=== PATIENT | male | born 1935 | race Caucasian/White ===

== ENCOUNTER 2020-08-05 10:20 | Inpatient (IN) ==
[2020-08-05] MEDS ORDERED: Sennosides 8.6 MG TABLET PO PRN (13:34)
[2020-08-05] MEDS: Haloperidol Oral Conc 10 MG/5 ML UDC PO PRN (21:50)
[2020-08-06] MEDS: Haloperidol Oral Conc 10 MG/5 ML UDC PO PRN (04:54)
[2020-08-06] MEDS: Finasteride 5 MG TABLET PO SCH (07:52)
[2020-08-06] MEDS ORDERED: *HR* Belladonna Alkaloids/Opium 30 MG RECTAL SUPPOSITORY RC PRN (10:37)
[2020-08-06 13:20] LABS: Bilirubin,Urine Negative (Negative); Blood,Urine Large (Negative); Clarity,Urine Clear (Clear); Color,Urine Yellow (Yellow); Glucose,Urine (UA) Normal (Normal); Ketones,Urine 20 mg/dL (Negative); Leukocyte Esterase,Urine Trace (Negative); Mucus,Urine Few per lpf (None-Few); Nitrite,Urine Negative (Negative); PH,Urine 6.5 pH Units (5.0-8.0); Protein,Urine 30 mg/dL (Neg-Trace); RBC,Urine TNTC per hpf (0-3); Specific Gravity,Urine 1.017 (1.010-1.025); Urobilinogen,Urine Normal (Normal)
[2020-08-07 06:46] VITALS: BP 193/69
[2020-08-07] MEDS: Finasteride 5 MG TABLET PO SCH (07:32)
[2020-08-07] MEDS ORDERED: Hyoscyamine SL 0.125 MG TAB.SUBL SL PRN (08:55)
[2020-08-07] MEDS ORDERED: Aspirin 325 MG TABLET PO SCH (09:00)
== END 2020-08-07 10:21 | disposition other institution (70) | DRG 951 ==
LOC: 2ANU 12:35
PROVIDERS: ADMIT Internal Medicine Hospice and Palliative Medicine; ATTEND Internal Medicine Hospice and Palliative Medicine

== ENCOUNTER 2020-08-07 09:32 | Inpatient (IN) ==
[2020-08-07] MEDS ORDERED: Naloxone 0.4 MG/ML INJ IVP PRN (12:05)
[2020-08-07] MEDS ORDERED: Isovue-370 500 ML BOTTLE IVP ONE ×2 (12:27→13:11)
[2020-08-07] MEDS ORDERED: Haloperidol Oral Conc 10 MG/5 ML UDC PO PRN (14:27)
[2020-08-07 16:12] LABS: Basophils % 0.7 %; Eosinophils # 0.1 K/mcL (0.0-0.6); Eosinophils % 1.7 %; Hematocrit 42.7 % (37.5-50.1); Hemoglobin 14.3 g/dL (12.9-16.9); Immature Granulocytes % 0.2 % (0-4); Immature Platelets 5.2 % (1.1-6.1); Lymphocytes # 0.9 K/mcL (0.6-4.6); Lymphocytes % 19.3 %; Mean Corpuscular HGB Conc 33.5 g/dL (31.6-35.5); Mean Corpuscular Hemoglobin 31.3 pg (28.0-33.3); Mean Corpuscular Volume 93.4 fL (83.0-100.0); Mean Platelet Volume 10.4 fL (9.4-12.4); Monocytes # 0.4 K/mcL (0.0-1.3); Monocytes % 9.5 %; Neutrophils # 3.2 K/mcL (1.6-8.9); Platelet Count 133 K/mcL (140-400); Red Blood Count 4.57 M/mcL (4.19-5.50); Red Cell Distribution Width 12.5 % (11.5-14.5); Segmented Neutrophils % 68.6 %; White Blood Count 4.6 K/mcL (4.3-11.1)
[2020-08-07 16:33] LABS: Alanine Aminotransferase 11 Units/L (7-52); Albumin 4.1 g/dL (3.5-5.7); Albumin/Globulin Ratio 1.3 (1.1-2.2); Alkaline Phosphatase 77 Units/L (34-104); Aspartate Amino Transferase 24 Units/L (13-39); BUN/Creatinine Ratio 19 (6-26); Bilirubin,Total 1.2 mg/dL (0.3-1.0); Blood Urea Nitrogen 18 mg/dL (8-23); Carbon Dioxide 27 mEq/L (23-29); Chloride 104 mEq/L (98-107); Globulin 3.1 g/dL (2.4-3.5); Glucose 129 mg/dL (70-105); Osmolality,Calculated 290 (280-300); Potassium 4.4 mEq/L (3.5-5.1); Sodium 138 mEq/L (136-145); Total Protein 7.2 g/dL (6.4-8.9); eGFR For African Americans > 60 (> 60); eGFR For Non-African Americans > 60 (> 60)
[2020-08-07] MEDS ORDERED: Gadolinium Contrast Agent (WT Based) IV PRN (18:23)
[2020-08-07] MEDS ORDERED: 0.9 % Sodium Chloride 1,000 ML IVC SCH (18:30)
[2020-08-07] MEDS: Sennosides 8.6 MG TABLET PO SCH (19:25)
[2020-08-07] MEDS: *HR* Heparin 5,000 UNIT/ML VIAL SQ SCH (22:01)
[2020-08-08] MEDS ORDERED: *HR* LORazepam 2 MG/ML VIAL IVP ONE ×2 (01:48→09:41)
[2020-08-08] MEDS ORDERED: *HR* LORazepam 2 MG/ML VIAL IM ONE (02:24)
[2020-08-08] MEDS ORDERED: Haloperidol Lactate 5 MG/ML VIAL IVP ONE (04:18)
[2020-08-08] MEDS: *HR* Heparin 5,000 UNIT/ML VIAL SQ SCH ×3 (06:18→19:46)
[2020-08-08] MEDS: Sennosides 8.6 MG TABLET PO SCH ×3 (07:33→19:47)
[2020-08-08] MEDS: Finasteride 5 MG TABLET PO SCH ×2 (07:33→07:52)
[2020-08-08] MEDS: Aspirin 325 MG TABLET PO SCH ×2 (07:33→07:52)
[2020-08-08] MEDS ORDERED: OLANZapine 10 MG VIAL IM ONE (12:17)
[2020-08-09] MEDS ORDERED: *HR* LORazepam 2 MG/ML VIAL IVP ONE (01:02)
[2020-08-09] MEDS: *HR* Heparin 5,000 UNIT/ML VIAL SQ SCH ×3 (05:17→21:15)
[2020-08-09 06:53] LABS: Basophils % 0.8 %; Immature Granulocytes % 0.2 % (0-4)
[2020-08-09 06:54] LABS: Eosinophils # 0.2 K/mcL (0.0-0.6); Eosinophils % 3.6 %; Hematocrit 44.5 % (37.5-50.1); Hemoglobin 14.6 g/dL (12.9-16.9); Immature Platelets 3.8 % (1.1-6.1); Lymphocytes # 0.9 K/mcL (0.6-4.6); Mean Corpuscular HGB Conc 32.8 g/dL (31.6-35.5); Mean Corpuscular Hemoglobin 32.4 pg (28.0-33.3); Mean Corpuscular Volume 98.7 fL (83.0-100.0); Mean Platelet Volume 10.4 fL (9.4-12.4); Monocytes # 0.5 K/mcL (0.0-1.3); Neutrophils # 3.5 K/mcL (1.6-8.9); Platelet Count 137 K/mcL (140-400); Red Blood Count 4.51 M/mcL (4.19-5.50); Red Cell Distribution Width 12.6 % (11.5-14.5); Segmented Neutrophils % 69.4 %
[2020-08-09 07:15] LABS: BUN/Creatinine Ratio 24 (6-26); Blood Urea Nitrogen 22 mg/dL (8-23); Calcium 9.3 mg/dL (8.6-10.3); Carbon Dioxide 24 mEq/L (23-29); Chloride 107 mEq/L (98-107); Glucose 97 mg/dL (70-105); Magnesium 2.1 mg/dL (1.6-2.6); Osmolality,Calculated 293 (280-300); Phosphorous 2.9 mg/dL (2.7-4.5); Potassium 3.7 mEq/L (3.5-5.1); Sodium 140 mEq/L (136-145); eGFR For African Americans > 60 (> 60); eGFR For Non-African Americans > 60 (> 60)
[2020-08-09] MEDS ORDERED: *HR* OxyCODONE Immed Rel 5 MG TABLET PO PRN (10:53)
[2020-08-09] MEDS: Aspirin 325 MG TABLET PO SCH ×2 (11:27→16:25)
[2020-08-09] MEDS: Sennosides 8.6 MG TABLET PO SCH ×3 (11:28→20:11)
[2020-08-09] MEDS: Finasteride 5 MG TABLET PO SCH ×2 (11:28→16:24)
[2020-08-09] MEDS ORDERED: OLANZapine 5 MG TAB.RAPDIS PO SCH (18:00)
[2020-08-09] MEDS: OLANZapine 5 MG TAB.RAPDIS PO SCH (20:10)
[2020-08-10] MEDS ORDERED: *HR* LORazepam 2 MG/ML VIAL IVP ONE ×2 (01:33→23:26)
[2020-08-10] MEDS: *HR* Heparin 5,000 UNIT/ML VIAL SQ SCH ×3 (05:11→21:54)
[2020-08-10] MEDS: Sennosides 8.6 MG TABLET PO SCH ×2 (11:00→21:54)
[2020-08-10] MEDS: Finasteride 5 MG TABLET PO SCH (11:00)
[2020-08-10] MEDS: Aspirin 325 MG TABLET PO SCH (11:01)
[2020-08-10] MEDS: OLANZapine 5 MG TAB.RAPDIS PO SCH (21:48)
[2020-08-11] MEDS: *HR* Heparin 5,000 UNIT/ML VIAL SQ SCH ×3 (05:30→21:43)
[2020-08-11] MEDS: Aspirin 325 MG TABLET PO SCH (09:37)
[2020-08-11] MEDS: Finasteride 5 MG TABLET PO SCH (09:38)
[2020-08-11] MEDS: Sennosides 8.6 MG TABLET PO SCH ×2 (09:38→21:46)
[2020-08-11 10:58] LABS: Basophils % 0.9 %; Eosinophils # 0.3 K/mcL (0.0-0.6); Eosinophils % 6.1 %; Hematocrit 42.1 % (37.5-50.1); Hemoglobin 13.7 g/dL (12.9-16.9); Immature Granulocytes % 0.2 % (0-4); Immature Platelets 4.6 % (1.1-6.1); Lymphocytes % 24.3 %; Mean Corpuscular HGB Conc 32.5 g/dL (31.6-35.5); Mean Corpuscular Hemoglobin 30.9 pg (28.0-33.3); Mean Corpuscular Volume 94.8 fL (83.0-100.0); Mean Platelet Volume 10.4 fL (9.4-12.4); Monocytes # 0.3 K/mcL (0.0-1.3); Neutrophils # 2.6 K/mcL (1.6-8.9); Platelet Count 133 K/mcL (140-400); Red Blood Count 4.44 M/mcL (4.19-5.50); Red Cell Distribution Width 12.8 % (11.5-14.5); Segmented Neutrophils % 60.5 %; White Blood Count 4.2 K/mcL (4.3-11.1)
[2020-08-11 11:10] LABS: BUN/Creatinine Ratio 37 (6-26); Blood Urea Nitrogen 33 mg/dL (8-23); Calcium 9.3 mg/dL (8.6-10.3); Carbon Dioxide 25 mEq/L (23-29); Chloride 111 mEq/L (98-107); Glucose 111 mg/dL (70-105); Osmolality,Calculated 304 (280-300); Potassium 3.8 mEq/L (3.5-5.1); Sodium 143 mEq/L (136-145); eGFR For African Americans > 60 (> 60); eGFR For Non-African Americans > 60 (> 60)
[2020-08-11] MEDS ORDERED: D5% in 0.9% NACL 1,000 ML IVC SCH (14:00)
[2020-08-11] MEDS: OLANZapine 5 MG TAB.RAPDIS PO SCH (21:44)
[2020-08-12] MEDS: *HR* Heparin 5,000 UNIT/ML VIAL SQ SCH ×3 (05:47→21:09)
[2020-08-12 06:07] LABS: Amorphous Sediment,Urine Few per hpf (None-Few); Bacteria,Urine Few per hpf (None-Few); Bilirubin,Urine Negative (Negative); Blood,Urine Moderate (Negative); Clarity,Urine Turbid (Clear); Color,Urine Yellow (Yellow); Glucose,Urine (UA) Normal (Normal); Ketones,Urine Trace mg/dL (Negative); Leukocyte Esterase,Urine Small (Negative); Mucus,Urine Few per lpf (None-Few); Nitrite,Urine Negative (Negative); Protein,Urine 30 mg/dL (Neg-Trace); RBC,Urine 30-50 per hpf (0-3); Specific Gravity,Urine 1.028 (1.010-1.025); Urobilinogen,Urine Normal (Normal)
[2020-08-12 06:08] LABS: Amphetamine Screen,Urine Negative ng/mL (Cutoff=1000); Barbiturate Screen,Urine Negative ng/mL (Cutoff=200)
[2020-08-12 06:09] LABS: Benzodiazepines Screen,Urine Positive ng/mL (Cutoff=300); Cannabinoid Screen,Urine Negative ng/mL (Cutoff = 50); Cocaine Screen,Urine Negative ng/mL (Cutoff= 300); Opiate Screen,Urine Negative ng/mL (Cutoff=300); Phencyclidine Screen,Urine Negative ng/mL (Cutoff=25)
[2020-08-12] MEDS: Finasteride 5 MG TABLET PO SCH (09:34)
[2020-08-12] MEDS: Sennosides 8.6 MG TABLET PO SCH ×2 (09:34→21:08)
[2020-08-12] MEDS: Aspirin 325 MG TABLET PO SCH (09:34)
[2020-08-12 13:08] LABS: Adenovirus Not Detected (Not Detect); Bordetella Pertussis Not Detected (Not Detect); Chlamydophila pneumoniae Not Detected (Not Detect); Coronavirus 229E Not Detected (Not Detect); Coronavirus HKU1 Not Detected (Not Detect); Coronavirus NL63 Not Detected (Not Detect); Coronavirus OC43 Not Detected (Not Detect); Human Metapneumovirus Not Detected (Not Detect); Human Rhinovirus/Enterovirus Not Detected (Not Detect); Influenza A Subtype 2009 H1 Not Detected (Not Detect); Influenza B Not Detected (Not Detect); Mycoplasma pneumoniae Not Detected (Not Detect); Parainfluenza Virus 1 Not Detected (Not Detect); Parainfluenza Virus 2 Not Detected (Not Detect); Parainfluenza Virus 3 Not Detected (Not Detect); Parainfluenza Virus 4 Not Detected (Not Detect); Respiratory Syncytial Virus Not Detected (Not Detect); SARS-CoV-2 Not Detected (Not Detect)
[2020-08-12] MEDS: OLANZapine 5 MG TAB.RAPDIS PO SCH (21:08)
[2020-08-13] MEDS: *HR* Heparin 5,000 UNIT/ML VIAL SQ SCH ×3 (05:33→20:49)
[2020-08-13] MEDS: Aspirin 325 MG TABLET PO SCH (07:22)
[2020-08-13] MEDS: Finasteride 5 MG TABLET PO SCH (07:22)
[2020-08-13] MEDS: Sennosides 8.6 MG TABLET PO SCH ×2 (07:22→20:49)
[2020-08-13] MEDS: OLANZapine 5 MG TAB.RAPDIS PO SCH (20:49)
[2020-08-14] MEDS: *HR* Heparin 5,000 UNIT/ML VIAL SQ SCH ×3 (05:09→21:56)
[2020-08-14] MEDS: Aspirin 325 MG TABLET PO SCH (07:39)
[2020-08-14] MEDS: Sennosides 8.6 MG TABLET PO SCH ×2 (07:39→21:56)
[2020-08-14] MEDS: Finasteride 5 MG TABLET PO SCH (07:40)
[2020-08-14] MEDS: OLANZapine 5 MG TAB.RAPDIS PO SCH (21:56)
[2020-08-15] MEDS: *HR* Heparin 5,000 UNIT/ML VIAL SQ SCH ×3 (05:51→20:09)
[2020-08-15] MEDS: Sennosides 8.6 MG TABLET PO SCH ×2 (10:15→20:09)
[2020-08-15] MEDS: Aspirin 325 MG TABLET PO SCH (10:15)
[2020-08-15] MEDS: Finasteride 5 MG TABLET PO SCH (10:17)
[2020-08-15] MEDS ORDERED: Haloperidol Lactate 5 MG/ML VIAL IVP ONE (22:15)
[2020-08-15] MEDS: OLANZapine 5 MG TAB.RAPDIS PO SCH (22:18)
[2020-08-16] MEDS: *HR* Heparin 5,000 UNIT/ML VIAL SQ SCH ×3 (06:13→21:01)
[2020-08-16] MEDS: Aspirin 325 MG TABLET PO SCH (10:05)
[2020-08-16] MEDS: Finasteride 5 MG TABLET PO SCH (10:05)
[2020-08-16] MEDS: Sennosides 8.6 MG TABLET PO SCH ×2 (10:05→19:51)
[2020-08-16] MEDS: OLANZapine 5 MG TAB.RAPDIS PO SCH (19:51)
[2020-08-16] MEDS ORDERED: Haloperidol Lactate 5 MG/ML VIAL IVP ONE ×2 (20:41→21:31)
[2020-08-16] MEDS ORDERED: polyethylene glycoL 3350 17 GM POWD.PACK PO PRN (21:13)
[2020-08-17] MEDS ORDERED: Acetaminophen IV 1,000 MG/100 ML INFUS..BTL IVPB ONE (03:37)
[2020-08-17] MEDS ORDERED: Prochlorperazine 10 MG/2 ML VIAL IVP PRN (04:07)
[2020-08-17 04:15] LABS: Basophils % 1.2 %; Eosinophils # 0.1 K/mcL (0.0-0.6); Eosinophils % 6.8 %; Hematocrit 48.2 % (37.5-50.1); Hemoglobin 15.2 g/dL (12.9-16.9); Immature Platelets 5.3 % (1.1-6.1); Lymphocytes % 60.2 %; Mean Corpuscular HGB Conc 31.5 g/dL (31.6-35.5); Mean Corpuscular Hemoglobin 30.6 pg (28.0-33.3); Mean Corpuscular Volume 97.2 fL (83.0-100.0); Mean Platelet Volume 10.5 fL (9.4-12.4); Neutrophils # 0.5 K/mcL (1.6-8.9); Platelet Count 134 K/mcL (140-400); Red Blood Count 4.96 M/mcL (4.19-5.50); Red Cell Distribution Width 12.4 % (11.5-14.5); Segmented Neutrophils % 31.8 %; White Blood Count 1.6 K/mcL (4.3-11.1)
[2020-08-17] MEDS ORDERED: 0.9 % Sodium Chloride 1,000 ML ONE (04:23)
[2020-08-17] MEDS ORDERED: 0.9 % Sodium Chloride 1,000 ML IVC ONE (04:24)
[2020-08-17 04:36] LABS: Alanine Aminotransferase 77 Units/L (7-52); Albumin 4.2 g/dL (3.5-5.7); Albumin/Globulin Ratio 1.4 (1.1-2.2); Alkaline Phosphatase 85 Units/L (34-104); Aspartate Amino Transferase 59 Units/L (13-39); BUN/Creatinine Ratio 18 (6-26); Bilirubin,Total 0.9 mg/dL (0.3-1.0); Blood Urea Nitrogen 27 mg/dL (8-23); Calcium 10.1 mg/dL (8.6-10.3); Carbon Dioxide 23 mEq/L (23-29); Chloride 106 mEq/L (98-107); Glucose 148 mg/dL (70-105); Osmolality,Calculated 300 (280-300); Potassium 4.4 mEq/L (3.5-5.1); Sodium 141 mEq/L (136-145); Total Protein 7.2 g/dL (6.4-8.9); eGFR For African Americans 55 (> 60); eGFR For Non-African Americans 45 (> 60)
[2020-08-17 04:38] VITALS: BP 86/56
[2020-08-17 04:42] LABS: ABG Base Excess -3 mEq/L (-2 to 3); ABG HCO3 20 mEq/L (21-27); ABG Oxygen Saturation 90 % (95-98); ABG PCO2 28 mmHg (35-45); ABG PH 7.45 pH Units (7.32-7.45); ABG PO2 54 mmHg (85-104); ABG TCO2 21 mEq/L (20-26)
[2020-08-17] MEDS ORDERED: Vancomycin 1,500 MG/265 ML IV.SOLN IVPB ONE (05:00)
[2020-08-17 05:01] LABS: Platelet Estimate Normal (Normal)
[2020-08-17 05:13] LABS: Troponin I < 0.03 ng/mL (< 0.04)
[2020-08-17] MEDS ORDERED: Norepinephrine 4 MG/254 ML IV.SOLN IVC SCH (05:15)
[2020-08-17] MEDS ORDERED: Phenylephrine 20 MG in 0.9 % Sodium Chloride 250 ML IVC SCH (05:45)
[2020-08-17] MEDS ORDERED: Piperacillin/Tazobactam 3.375 GM in 0.9 % Sodium Chloride Mini Bag 100 ML IVPB SCH (06:00)
[2020-08-17] MEDS: *HR* Heparin 5,000 UNIT/ML VIAL SQ SCH (06:09)
[2020-08-17] MEDS ORDERED: *HR* Metoprolol 5 MG/5 ML VIAL IVP ONE ×2 (06:14→06:17)
[2020-08-17] MEDS ORDERED: Haloperidol Lactate 5 MG/ML VIAL IVP PRN (07:27)
[2020-08-17] MEDS ORDERED: *HR* LORazepam Oral Conc 2 MG/ML PO PRN (07:27)
[2020-08-17] MEDS ORDERED: polyethylene glycoL 3350 17 GM POWD.PACK PO PRN (07:27)
[2020-08-17] MEDS ORDERED: Morphine Sulfate 2 MG/ML SYRINGE IVP PRN (07:27)
[2020-08-17] MEDS ORDERED: Ondansetron ODT 4 MG TAB.RAPDIS SL PRN (07:27)
[2020-08-17] MEDS ORDERED: Acetaminophen 650 MG RECTAL SUPP RC PRN (07:27)
[2020-08-17] MEDS ORDERED: Scopolamine Patch 1.5 MG PATCH.TD72 TD SCH (07:30)
[2020-08-17] MEDS ORDERED: *HR* FentaNYL (PF) 100 MCG/2 ML VIAL IVP PRN (08:09)
[2020-08-17 15:15] LABS: Acinetobacter baumannii by PCR Not Detected (Not Detect); Candida albicans by PCR Not Detected (Not Detect); Candida glabrata by PCR Not Detected (Not Detect); Candida krusei by PCR Not Detected (Not Detect); Candida parapsilosis by PCR Not Detected (Not Detect); Candida tropicalis by PCR Not Detected (Not Detect); Enterobacter cloacae Cmplx PCR Not Detected (Not Detect); Enterococcus by PCR Not Detected (Not Detect); Escherichia coli by PCR Not Detected (Not Detect); Klebsiella oxytoca by PCR Not Detected (Not Detect); Klebsiella pneumoniae by PCR Not Detected (Not Detect); Proteus by PCR DETECTED (Not Detect); Pseudomonas aeruginosa by PCR Not Detected (Not Detect); Serratia marcescens by PCR Not Detected (Not Detect); Staphylococcus aureus by PCR Not Detected (Not Detect); Staphylococcus by PCR Not Detected (Not Detect); Streptococcus agalactiae(B)PCR Not Detected (Not Detect); Streptococcus by PCR Not Detected (Not Detect); Streptococcus pneumoniae PCR Not Detected (Not Detect); Streptococcus pyogenes (A) PCR Not Detected (Not Detect); blaKPC Carbapenem-Resist Gene Not Detected (Not Detect)
== END 2020-08-17 09:30 | disposition expired | DRG 70 ==
LOC: 2ANU → SUATTDRO 10:23 → 2ANU 15:15 → SUATTDRO 08-12 15:59 → ICNU 08-17 04:48
PROVIDERS: ADMIT Internal Medicine; ATTEND Internal Medicine